=== PATIENT | male | born 1970 | race Caucasian/White ===

== ENCOUNTER 2020-01-12 00:32 | Outpatient (CLI) | payer BC, SELFPAY ==
[2020-01-12 16:46] LABS: SARS-CoV-2 RNA PCR Negative
== END 2020-01-12 00:33 | disposition home or self-care (01) ==
LOC: ANHCOVIDDT 00:32
PROVIDERS: PCP Family Medicine; Visit Provider Internal Medicine Gastroenterology
DX: Z01.818 Encounter for other preprocedural examination (principal); Z11.59 Encounter for screening for other viral diseases; R19.5 Other fecal abnormalities
CPT/HCPCS: 87635; C9803; U0003

== ENCOUNTER 2020-01-15 00:49 | Day surgery (SDC) | payer BC, SELFPAY ==
[2020-01-07 14:03] VITALS: BMI 34.2
[2020-01-15 08:30] VITALS: BMI 34.4
[2020-01-15 08:31] VITALS: BP 139/89; PULSE 57; RESP 15; TEMP 36.7; O2SAT 100
[2020-01-15] MEDS: LACTATED RINGERS 1,000 ML 150 ML IV CONT (08:41)
--- NOTE | 2020-01-15 08:59 | WPDANESEPPF ---
Anes - Initial Pre Proc Eval Procedure: Operation Date: 01/15/20 09:45 Proposed Procedures p Screening Colonoscopy - Armani English MD Date/Time: 01/15/20 08:59 Surgeon: Armani English MD Pre Op Diagnosis: positive cologuard Patient Data Age: 49 Gender: M Height: 5 ft 8 in Weight: 102.9 kg Last Vital Signs Temp 36.7 C 01/15/20 08:31 Pulse 57 L 01/15/20 08:31 Resp 15 01/15/20 08:31 BP 139/89 01/15/20 08:31 Pulse Ox 100 01/15/20 08:31 Allergies Allergy/AdvReac Type Severity Reaction Status Date / Time acetaminophen Allergy Unknown Unknown Verified 01/15/20 08:33 [From Darvocet-N] propoxyphene Allergy Unknown Unknown Verified 01/15/20 08:33 [From Darvocet-N] simvastatin [From Zocor] Allergy Unknown muscle Verified 01/15/20 08:33 aches codeine AdvReac Unknown does not Verified 01/15/20 08:33 tolerate Home Medications Medication Instructions Recorded Confirmed Type metoprolol tartrate 100 mg tablet 100 mg PO Q12H #180 tablet 09/07/19 01/15/20 Rx omeprazole 20 mg capsule,delayed 20 mg PO DAILY 09/12/19 01/15/20 History release quinapril 40 mg tablet 40 mg PO DAILY #90 tablet 11/02/19 01/15/20 Rx multivitamin 1 cap PO DAILY 01/07/20 01/15/20 History omega 5-zve-dxj-fish oil [Fish Oil] 1 cap PO DAILY 01/07/20 01/15/20 History testosterone enanthate 100 mg SUBCUT WEEKLY 01/07/20 01/15/20 History Patient hx anesthesia problems: none Family hx anesthesia problems: none PMFSH Past Medical History Medical History GERD (gastroesophageal reflux disease) HLD (hyperlipidemia) Hypertension Nephrolithiasis Pilonidal cyst Positive colorectal cancer screening using Cologuard test Rupture of right distal biceps tendon Apr 18, 2019 repair/reattachment Surgical History Surgical History H/O: vasectomy Family History Family History Other Family history of malignant melanoma Hypertension Social History Social History (Updated 01/15/20 @ 09:01 by Riaz Mora MD) Smoking status: Former smoker Second hand tobacco smoke exposure: No Alcohol intake: current Anes - Eval Final PreProcedure Day of Procedure 01/15/20 08:59 Patient weight: obese Heart: regular rate and rhythm Lungs: clear to auscultation Airway: Mallampati scale class II Neurological: alert and oriented Last oral intake: >/= 8 hours ASA classification: II Emergent: no Anesthesia type and monitoring: general Informed Consent: The patient's anesthetic plan and its attendant risks and benefits were discussed with the patient/family/POA. Questions were solicited and answers provided to the satisfaction of the patient/family/POA.
--- NOTE | 2020-01-15 10:28 | WPDHPUPDATE1 ---
History and Physical Update Update Date/Time: 01/15/20 10:28 History and Physical has been reviewed, including an updated exam of the patient. There are NO changes in the patient's condition. Risks, benefits, and alternatives have been discussed and questions answered. Patient agrees to proceed with procedure.
[2020-01-15 10:34] VITALS: BP 105/69; PULSE 56; RESP 20; O2SAT 97
[2020-01-15 10:44] VITALS: BP 104/69; PULSE 56; RESP 20; O2SAT 98
[2020-01-15 10:54] VITALS: BP 115/80; PULSE 58; RESP 20; O2SAT 100
== END 2020-01-15 11:15 | disposition home or self-care (01) ==
PROVIDERS: PCP Family Medicine; Visit Provider Internal Medicine Gastroenterology
PROC: 0DJD8ZZ Inspection of Lower Intestinal Tract, Via Natural or Artificial Opening Endoscopic (ICD-10-PCS; CPT 45378; principal; 2020-01-15 09:45)
DX: R19.5 Other fecal abnormalities (principal); D12.5 Benign neoplasm of sigmoid colon; K63.5 Polyp of colon; K57.30 Diverticulosis of large intestine without perforation or abscess without bleeding; K64.8 Other hemorrhoids; I10 Essential (primary) hypertension; E78.5 Hyperlipidemia, unspecified; K21.9 Gastro-esophageal reflux disease without esophagitis; Z87.891 Personal history of nicotine dependence; E66.9 Obesity, unspecified; Z68.34 Body mass index [BMI] 34.0-34.9, adult
CPT/HCPCS: 45380; 88305; J2001; J2704; J7120

== ENCOUNTER → 2022-12-22 11:40 | Outpatient (CLI) | payer OTHER, SELFPAY ==
--- NOTE | ~2022-12-22 | XR_ITS ---
EXAM: XR cervical spine 4-5V DATE: 12/22/2022 13:43 HISTORY: M54.12 - Radiculopathy, cervical region . COMPARISON: None available. FINDINGS: Craniocervical association and atlantoaxial joint are aligned. No prevertebral soft tissue swelling. 3 mm retrolisthesis at C5-6. Vertebral body heights are maintained. Mild disc space narrow ing at C5-6. Mild facet sclerosis in the lower cervical spine. IMPRESSION: Grade 1 retrolisthesis and mild degenerative disc disease at C5-6. Lower cervical facet a rthropathy. Reviewed, dictated and finalized at location K. IMPRESSION: Grade 1 retrolisthesis and mild degenerative disc disease at C5-6. Lower cervical facet arthropathy.
== END ==
PROVIDERS: PCP Family Medicine; Visit Provider Physician Assistant Medical
DX: M54.12 Radiculopathy, cervical region (principal); M50.322 Other cervical disc degeneration at C5-C6 level
CPT/HCPCS: 72050

== ENCOUNTER 2024-11-16 06:13 | Inpatient (IN) | payer OTHER, SELFPAY ==
[2024-11-16] VITALS (13 sets, daily range): BP systolic 109–156; BP diastolic 70–108; PULSE 76–88; RESP 16–20; TEMP 36.3–36.9; O2SAT 93–99
--- NOTE | ~2024-11-16 | CT_ITS ---
EXAMINATION: CT abdomen pelvis w con DATE: 11/16/2024 07:37 INDICATION: Right lower quadrant abdominal pain. TECHNIQUE: Computed tomography (CT) of the abdomen and pelvis was performed with 100 mL Omnipaque 350 intravenous contrast. Automated exposure control and iterative reconstruction technique were employe d. The dose-length product was 884.71 mGy-cm. COMPARISON: CT abdomen and pelvis 04/19/2014 FINDINGS: The visualized portions of lung bases demonstrate mild atelectasis. No pleural effusion. Th e heart size is normal. No pericardial effusion. There are cysts in the liver measuring up to 4 mm. T here is a gallstone in the gallbladder, which is normal in size. The pancreas, spleen, and adrenal gl ands are normal. There are cysts in the kidneys measuring up to 3.2 cm on the right. There are 4 ston es in right kidney measuring up to 5 mm. There are at least 8 stones in left kidney measuring up to 5 mm. There are bilateral inguinal hernias containing fat. There is diverticulosis of the colon withou t evidence of diverticulitis. There are multiple appendicoliths in the appendix, which is fluid-fille d and dilated to 11 mm with surrounding fat stranding, consistent with appendicitis. There are no pat hologically enlarged lymph nodes. There is no free intraperitoneal fluid. There is severe lower lumba r spondylosis. There is mild chronic anterior wedging of multiple vertebral bodies. IMPRESSION: 1. Acute appendicitis. 2. Bilateral inguinal hernias containing fat. Reviewed, dictated and finalized at location A.
--- OUTSIDE RECORDS SUMMARY | 2024-11-16 06:16 | XMS_ITS | Continuity of Care Document ---
Author Organization [facility] Address [address] [place] [address] Phone Care Team Providers Care Deli Cutter Slicer Name Role Phone Jossy PT, MPT, Deidre Unavailable Unavaila ble Procedures Procedure Date PT Re-evaluation Therapeutic Activities Neuromuscular Re-Ed Therapeutic Exercise Manual Therapy Therapeutic Activities Neuromuscular Re-Ed Therapeutic Exercise Progress Note Therapeutic Activities Neuromuscular Re-Ed Therapeutic Exercise Therapeutic Activities Neuromuscular Re-Ed Therapeutic Exercise Therapeutic Activities Neuromuscular Re-Ed Therapeutic Exercise Manual Therapy PT Evaluation Moderate Complexity Therapeutic Activities Therapeutic Exercise Manual Therapy Advance Directives Directive Yes / No Effective Date File Name No Information Encounters Encounter Description Practice Location Reason(s) For Visit Diagnoses Date Provider Providers Copied on Encounter [facility], [address], [place], [place], [id number], [place] tel:[phone] [facility] No Information 9 Jossy Jiang. . Referring Provider: Benji Dutton, [address], [place], [address]. tel:[phone] [facility], [address], [place], [place], [id number], tel:[phone] [facility] No Information 9 Jossy Deidre. . Referring Provider: Benji Dutton, [address], [place], [address]. tel:[phone] [address], [place], [place], [id number], [place] tel:[phone] [facility] No Information 3-201 9 Jacinda Michael. . Referring Provider: Benji Dutton, [address], [place], [address]. tel:[phone] [address], [place], [place], [id number], [place] tel:[phone] [facility] No Information 0 6- 9 Jacinda Michael. . Referring Provider: Benji Dutton, [address], [place], [address]. tel:[phone] [facility] [address] [place], [place] [address], [place], [place], [address], [place] tel:[phone] [facility] No Information 0 9 Jossy Deidre. . Referring Provider: Benji Dutton, [address], [place], [address]. tel:[phone] [address], [place], [place], [address], [place] tel:[phone] [facility] No Information Nov0 - 9 Jossy Deidre. . Referring Provider: Benji Dutton, [address], [place], [address]. tel:[phone] Family History Family Member Type Diagnosis Age At Onset No Information Payers Payer name Insurance type Covered libertarian ID Authoriza tion(s) [employer] PAMELA [id number] Social History Type Description Quantity Date Captured Comments Alcohol Use Details Unknown Caffeine Use Details Unknown Tobacco Use Status No Information Smoking Status No Information Non-Smoking Tobacco Use Details : No Details Available : No Details Available Sex Male Chief Complaint And Reason For Visit No Information Reason For Referral Reason For Referral No Information Plan Of Treatment Date Type Action Status Referral Ordered: PCP timeframe: 1 week. (related to Overweight) ordered Referral Ordered: PCP timeframe: 1 week. (related to Overweight) ordered History Of Present Illness Encounter Date Complaint History Of Prese nt Illness No Information Functional Status Date Functional Assessmen t Pain Score 0/10 Instructions Date Instruction Additional Infor mation No Information Assessments Type Assessment Date No Information Patient Care Teams Name Effective Dates (start - stop) Status Members No Information
[2024-11-16 06:38] LABS: Basophils Percent Auto 0.3 % (0.2-1.2); Eosinophils Percent Auto 0.2 % (0-4.4); Hemoglobin 17.4 g/dL (14.0-18.0); Immature Granulocyte Absolute 0.04 K/mm3 (0.00-0.031); Immature Granulocyte Percent A 0.3 % (0-0.5); Lymphocytes Absolute Auto 1.05 K/mm3 (0.9-3.2); Lymphocytes Percent Auto 8.5 % (18.3-44.2); Mean Corpuscular HGB Conc 32.8 g/dl (32-36); Mean Corpuscular Hemoglobin 29.9 pg (26-34); Mean Corpuscular Volume 91.2 fl (80-100); Monocytes Absolute Auto 0.6 K/mm3 (0.1-0.6); Monocytes Percent Auto 4.5 % (2.6-8.5); Neutrophils Absolute Auto 10.6 K/mm3 (1.3-6.7); Neutrophils Percent Auto 86.2 % (45.5-73.1); Platelet Count Result 232 k/mm3 (150-375); Red Blood Count 5.81 M/mm3 (4.6-6.20); Red Cell Distribution Width 12.5 % (11.5-14.5); White Blood Count 12.3 K/mm3 (4.5-10.0)
[2024-11-16 06:52] LABS: Alanine Aminotransferase 35 U/L (6-50); Albumin Level 4.8 g/dL (3.5-5.1); Alkaline Phosphatase 52 U/L (38-126); Anion Gap 11 mmol/L (4-12); Aspartate Amino Transferase 33 U/L (17-59); Bilirubin,Total 0.9 mg/dL (0.2-1.3); Blood Urea Nitrogen 17 mg/dL (9-20); Calcium 9.6 mg/dL (8.4-10.2); Carbon Dioxide 25 mmol/L (22-30); Chloride 102 mmol/L (98-107); Estimated CRCL calculation 89 ml/min; Estimated Glomerular Filt Rate > 60; Glucose 111 mg/dL (65-110); Lipase 180 U/L (23-300); Sodium 138 mmol/L (137-145)
[2024-11-16 07:07] LABS: Add Urine Microscopic? YES; Appearance Urine Clear (Clear); Bacteria Urine None Seen /hpf; Bilirubin Urine Negative (Negative); Blood Urine Negative (Negative); Color Urine Yellow (Yellow); Glucose Urine UA Negative (Negative); Ketones Urine 1+ mg/dL (Negative); Leukocyte Esterase Ur Negative LEU/UL (Negative); Nitrate Urine Negative (Negative); Non Pathogenic Casts 0-2; Protein Urine Trace mg/dL (Negative); RBC Urine 0-2 /hpf (0-2); Specific Grav Ur 1.022 (1.001-1.035); Squamous Epithelial Cell Urine None Seen /hpf (Few); Urobilinogen Urine 0.2 mg/dL (<2.0); WBC Urine 0-5 /hpf (0-3)
[2024-11-16] MEDS: SODIUM CHLORIDE 0.9% IV 1,000 ML 999 ML IV CONT (07:38)
[2024-11-16] MEDS: ONDANSETRON INJ 4 MG/2 ML VIAL IV PUSH (07:38)
[2024-11-16] MEDS: MORPHINE SULFATE (*CRX) 4 MG/ML INJ IV PUSH (07:39)
--- NOTE | 2024-11-16 07:51 | ED.ABDPAIN ---
HPI - Abdominal Pain General Chief Complaint: Abdominal Pain Stated Complaint: abd pain Time Seen by Provider: 11/16/24 06:59 Source: patient and family Mode of arrival: ambulatory Limitations: no limitations History of Present Illness HPI narrative: 54-year-old with a history of hypertension, kidney stones presents to the ER with a complaint of right lower quadrant abdominal pain which started about 1.30 am this morning. Complains of mild nausea and vomiting. Denies any fever or chills. Related Data Home Medications ?Medication ?Instructions ?Recorded ?Confirmed ?Last Taken ?Type multivitamin 1 cap PO DAILY 01/07/20 08/11/23 Unknown History testosterone cypionate 200 mg/mL 200 mg IM WEEKLY 09/02/21 08/11/23 Unknown History intramuscular oil omega 0-rwv-mkr-fish oil 1,000 mg 1 cap PO DAILY 01/13/22 08/11/23 Unknown History (120 mg-180 mg) capsule (Fish Oil) Allergies Allergy/AdvReac Type Severity Reaction Status Date / Time acetaminophen (From Allergy Unknown Unknown Verified 11/16/24 06:31 Darvocet-N) propoxyphene (From Allergy Unknown Unknown Verified 11/16/24 06:31 Darvocet-N) simvastatin (From Zocor) Allergy Unknown muscle Verified 11/16/24 06:31 aches codeine AdvReac Unknown does not Verified 11/16/24 06:31 tolerate Review of Systems Review of Systems: All systems reviewed & are unremarkable except as noted in HPI and below Constitutional: Constitutional: Reports no additional constitutional complaints Eyes: Eyes: Reports no additional eye complaints ENT: Reports system reviewed and no additional complaints, except as documented Cardiovascular: Cardiovascular: Reports no additional cardiovascular complaints Respiratory: Respiratory: Reports no additional respiratory complaints Gastrointestinal: Gastrointestinal: Reports as per HPI Genitourinary: Genitourinary: Reports no additional male genitourinary complaints Musculoskeletal: Musculoskeletal: Reports no additional musculoskeletal complaints Integumentary/Breasts: Skin/Breast: Reports system reviewed and no additional complaints, except as docu PMFSH Past Medical History Medical History BMI 36.0-36.9,adult Positive colorectal cancer screening using Cologuard test Rupture of right distal biceps tendon Apr 18, 2019 repair/reattachment Pilonidal cyst Nephrolithiasis GERD (gastroesophageal reflux disease) HLD (hyperlipidemia) Hypertension Surgical History Surgical History H/O: vasectomy Family History Family History Other Family history of malignant melanoma Hypertension Social History Social History Smoking status: Never smoker Second hand tobacco smoke exposure: No Alcohol intake: current Drinks per week: 2 Alcohol use details: beers Substance use: never Substance use type: does not use Lack of Transportation: No Lack of Food: Never True Current Housing: I Have Housing Concerned About Future Housing: No Difficulty Paying Gas/Electric Bills: No Difficulty Paying for Meds: No Currently Unemployed: No Difficulty w/ Childcare or Family Care: No Living arrangements: with family Gender identity (if verbalized by the patient): Male Sexual Orientation (if Verbalized by the Patient): Straight or Heterosexual Spiritual care concerns: No Agree to blood products: Yes Exam Narrative: GENERAL: Well-appearing, well-nourished, and in no acute distress. HEAD: Normocephalic, atraumatic. EYES: PERRLA and EOMI. ENT: Nares clear, Mucous membranes moist. NECK: Supple. CHEST: Clear to auscultation. No respiratory distress. HEART: Regular rate and rhythm. No murmur heard. Normal peripheral pulses. ABDOMEN: Soft, marked tenderness in the right lower quad with mild guarding, nondistended . EXTREMITIES: Normal range of motion. No edema. SKIN: Warm, dry, no rash. NEURO: No focal deficits. Alert and oriented x3. PSYCH: Normal mood and affect. Course Course Emergency Course: Pain is much improved with IV morphine. Informed him and his about the lab work, CT findings. Waiting for surgical consult Discussed with Dr. Huggins recommended IV Zosyn, admission . Vital Signs Vital signs: Vital Signs Temperature 36.4 C 11/16/24 06:24 Pulse Rate 85 11/16/24 06:24 Respiratory Rate 16 11/16/24 06:24 Blood Pressure 156/108 H 11/16/24 06:24 Pulse Oximetry 99 11/16/24 06:24 Oxygen Delivery Room Air 11/16/24 06:24 Temperature 36.4 C 11/16/24 06:24 Pulse Rate 83 11/16/24 08:00 Respiratory Rate 16 11/16/24 08:00 Blood Pressure 150/96 H 11/16/24 08:00 Pulse Oximetry 98 11/16/24 08:00 Oxygen Delivery Room Air 11/16/24 06:24 MDM - Abdominal Pain Differential Diagnosis Differential diagnosis: Likely acute appendicitis, calculus of kidney and constipation Lab Data Attestation: I reviewed the patient's lab results. 11/16/24 06:29 11/16/24 06:29 Labs: Lab Results 11/16/24 Range/Units 06:29 WBC 12.3 H (4.5-10.0) K/mm3 RBC 5.81 (4.6-6.20) M/mm3 Hgb 17.4 (14.0-18.0) g/dL Hct 53.0 H (42.0-52.0) % MCV 91.2 (80-100) fl MCH 29.9 (26-34) pg MCHC 32.8 (32-36) g/dl RDW 12.5 (11.5-14.5) % Plt Count 232 (150-375) k/mm3 MPV 10.0 (7.4-10.4) fl Immature Gran % (Auto) 0.3 (0-0.5) % Neut % (Auto) 86.2 H (45.5-73.1) % Lymph % (Auto) 8.5 L (18.3-44.2) % [place] % (Auto) 4.5 (2.6-8.5) % Eos % (Auto) 0.2 (0-4.4) % Baso % (Auto) 0.3 (0.2-1.2) % Lymph # (Auto) 1.05 (0.9-3.2) K/mm3 [place] # (Auto) 0.6 (0.1-0.6) K/mm3 Eos # (Auto) 0.0 (0-0.3) K/mm3 Baso # (Auto) 0.0 (0.0-0.1) K/mm3 Abs Immat Gran (auto) 0.04 H (0.00-0.031) K/mm3 Absolute Neuts (auto) 10.6 H (1.3-6.7) K/mm3 Absolute Nucleated RBC 0.000 (0.0-0.012) K/mm3 Nucleated RBC % 0.0 (0.0-0.2) % PT 12.0 (11.1-14.7) Seconds INR 0.8 Sodium 138 (137-145) mmol/L Potassium 4.0 (3.4-5.0) mmol/L Chloride 102 (98-107) mmol/L Carbon Dioxide 25 (22-30) mmol/L Anion Gap 11 (4-12) mmol/L BUN 17 (9-20) mg/dL Creatinine 0.92 (0.7-1.3) mg/dL Estim Creat Clear Calc 89 ml/min Estimated GFR > 60 (59 - ) Glucose 111 H (65-110) mg/dL Calcium 9.6 (8.4-10.2) mg/dL Total Bilirubin 0.9 (0.2-1.3) mg/dL AST 33 (17-59) U/L ALT 35 (6-50) U/L Alkaline Phosphatase 52 (38-126) U/L Total Protein 8.0 (6.3-8.2) g/dL Albumin 4.8 (3.5-5.1) g/dL Lipase 180 (23-300) U/L Urine Color Yellow (Yellow) Urine Appearance Clear (Clear) Urine pH 5.0 (5.0-9.0) Ur Specific [place] 1.022 (1.001-1.035) Urine Protein Trace (Negative) mg/dL Urine Glucose (UA) Negative (Negative) mg/dL Urine Ketones 1+ H (Negative) mg/dL Ur Blood (Man) Negative (Negative) Urine Nitrate Negative (Negative) Urine Bilirubin Negative (Negative) Urine Urobilinogen 0.2 (<2.0) mg/dL Leukocyte Esterase Rfl Negative (Negative) SAL/UL Urine RBC 0-2 (0-2) /hpf Urine WBC 0-5 (0-3) /hpf Ur Squamous Epith Cells None seen (Few) /hpf Urine Bacteria None seen /hpf Urine Casts 0-2 Imaging Data Radiologist's impression: ITS Impressions Abdomen/Pelvis CT 11/16/24 07:39 IMPRESSION: 1. Acute appendicitis. 2. Bilateral inguinal hernias containing fat. ECG Data EKG #1: ECG completion date: 11/16/24 ECG completion time: 08:49 normal rate (84), sinus rhythm, no ST changes, NL axis and no acute changes Discharge Plan Discharge Clinical Impression: Acute appendicitis Qualifiers: Acute appendicitis type: with localized peritonitis Appendicitis gangrene presence: without gangrene Appendicitis perforation presence: without perforation Appendicitis abscess presence: without abscess Qualified Code(s): K35.30 - Acute appendicitis with localized peritonitis, without perforation or gangrene Patient Disposition: Still a Patient Condition: Stable Instructions: Antibiotic Form Patient Language: Unknown Prescriptions: No Action testosterone cypionate 200 mg/mL oil 200 mg IM WEEKLY Rx Instructions: as a single dose multivitamin Capsule 1 cap PO DAILY omega 5-ymf-yll-fish oil [Fish Oil] 1,000 mg (120 mg-180 mg) capsule 1 cap PO DAILY lisinopril 40 mg tablet 40 mg PO DAILY Qty: 90 2RF Follow-up/Referrals: Irene Linton MD [Primary Care Provider] - Time of Disposition: 08:55
--- NOTE | 2024-11-16 07:52 | ECG_ITS ---
Test Date: 2024-11-16 08:49:15 Measurements Intervals [place] Rate: 84 P: 19 [place]: 173 QRS: -26 QRSD: 93 T: -8 QT: 352 QTc: 417 Interpretive Statements SINUS RHYTHM BORDERLINE LEFT AXIS DEVIATION [QRS AXIS < -20] MODERATE VOLTAGE CRITERIA FOR LVH, CONSIDER NORMAL VARIANT [MEETS CRITERIA IN ONE OF: R(aVL), S(V1), R(V5), R(V5/V6)+S(V1)] No previous ECG available for comparison Electronically Signed On 11-16-2024 10:59:59 CDT by Clara Oliver M.D.
[2024-11-16 08:12] LABS: INR 0.8
[2024-11-16] MEDS: PIPERACILLN/TAZ 3.375GM/NS50ML 3.375 GM/50 ML BAG IVPB ×3 (09:02→20:39)
[2024-11-16] MEDS: SODIUM CHLORIDE 0.9% IV 1,000 ML 125 ML IV CONT (10:14)
[2024-11-16] MEDS: MORPHINE SULFATE (*CRX) 2 MG/ML INJ IV PUSH ×3 (10:17→14:46)
--- NOTE | 2024-11-16 15:00 | PC.NURSE ---
To OR per wheelchair, IV right antecubital Report given to Kathy HYLTON.
--- NOTE | 2024-11-16 16:02 | P.PNAN_ITS ---
Anes - Initial Pre Proc Eval Procedure: Operation Date: 11/16/24 17:00 Proposed Procedures p Laparoscopic Appendectomy - He Huggins MD Date/Time: 11/16/24 16:02 Surgeon: He Huggins MD Pre Op Diagnosis: acute appendicitis Patient Data Age: 54 Gender: M Height: 1.73 m Weight: 95.4 kg Last Vital Signs Temp 36.9 C 11/16/24 15:31 Pulse 87 11/16/24 15:31 Resp 18 11/16/24 13:40 BP 127/81 11/16/24 15:31 Pulse Ox 96 11/16/24 15:31 O2 Del Method Room Air 11/16/24 06:24 Allergies Allergy/AdvReac Type Severity Reaction Status Date / Time acetaminophen (From Allergy Unknown Unknown Verified 11/16/24 06:31 Darvocet-N) propoxyphene (From Allergy Unknown Unknown Verified 11/16/24 06:31 Darvocet-N) simvastatin (From Zocor) Allergy Unknown muscle Verified 11/16/24 06:31 aches codeine AdvReac Unknown does not Verified 11/16/24 06:31 tolerate Home Medications ?Medication ?Instructions ?Recorded ?Confirmed ?Type multivitamin 1 cap PO DAILY 01/07/20 08/11/23 History testosterone cypionate 200 mg/mL 200 mg IM WEEKLY 09/02/21 08/11/23 History intramuscular oil omega 6-hxp-eag-fish oil 1,000 mg 1 cap PO DAILY 01/13/22 08/11/23 History (120 mg-180 mg) capsule (Fish Oil) lisinopril 40 mg tablet 40 mg PO DAILY #90 tabs 10/22/24 Rx Laboratory Tests 11/16/24 06:29 WBC 12.3 H K/mm3 (4.5-10.0) RBC 5.81 M/mm3 (4.6-6.20) Hgb 17.4 g/dL (14.0-18.0) Hct 53.0 H % (42.0-52.0) MCV 91.2 fl (80-100) MCH 29.9 pg (26-34) MCHC 32.8 g/dl (32-36) RDW 12.5 % (11.5-14.5) Plt Count 232 k/mm3 (150-375) MPV 10.0 fl (7.4-10.4) Immature Gran % (Auto) 0.3 % (0-0.5) Neut % (Auto) 86.2 H % (45.5-73.1) Lymph % (Auto) 8.5 L % (18.3-44.2) [place] % (Auto) 4.5 % (2.6-8.5) Eos % (Auto) 0.2 % (0-4.4) Baso % (Auto) 0.3 % (0.2-1.2) Lymph # (Auto) 1.05 K/mm3 (0.9-3.2) [place] # (Auto) 0.6 K/mm3 (0.1-0.6) Eos # (Auto) 0.0 K/mm3 (0-0.3) Baso # (Auto) 0.0 K/mm3 (0.0-0.1) Abs Immat Gran (auto) 0.04 H K/mm3 (0.00-0.031) Absolute Neuts (auto) 10.6 H K/mm3 (1.3-6.7) Absolute Nucleated RBC 0.000 K/mm3 (0.0-0.012) Nucleated RBC % 0.0 % (0.0-0.2) PT 12.0 Seconds (11.1-14.7) INR 0.8 Sodium 138 mmol/L (137-145) Potassium 4.0 mmol/L (3.4-5.0) Chloride 102 mmol/L (98-107) Carbon Dioxide 25 mmol/L (22-30) Anion Gap 11 mmol/L (4-12) BUN 17 mg/dL (9-20) Creatinine 0.92 mg/dL (0.7-1.3) Estim Creat Clear Calc 89 ml/min Estimated GFR > 60 (59 - ) Glucose 111 H mg/dL (65-110) Calcium 9.6 mg/dL (8.4-10.2) Total Bilirubin 0.9 mg/dL (0.2-1.3) AST 33 U/L (17-59) ALT 35 U/L (6-50) Alkaline Phosphatase 52 U/L (38-126) Total Protein 8.0 g/dL (6.3-8.2) Albumin 4.8 g/dL (3.5-5.1) Lipase 180 U/L (23-300) Urine Color Yellow (Yellow) Urine Appearance Clear (Clear) Urine pH 5.0 (5.0-9.0) Ur Specific [place] 1.022 (1.001-1.035) Urine Protein Trace mg/dL (Negative) Urine Glucose (UA) Negative mg/dL (Negative) Urine Ketones 1+ H mg/dL (Negative) Ur Blood (Man) Negative (Negative) Urine Nitrate Negative (Negative) Urine Bilirubin Negative (Negative) Urine Urobilinogen 0.2 mg/dL (<2.0) Leukocyte Esterase Rfl Negative SAL/UL (Negative) Urine RBC 0-2 /hpf (0-2) Urine WBC 0-5 /hpf (0-3) Ur Squamous Epith Cells None seen /hpf (Few) Urine Bacteria None seen /hpf Urine Casts 0-2 Patient hx anesthesia problems: none Family hx anesthesia problems: none Results Review: All pre-operative results and documents have been reviewed as part of the pre- operative evaluation. ON LICENSE OF [facility] Past Medical History Medical History BMI 36.0-36.9,adult Positive colorectal cancer screening using Cologuard test Rupture of right distal biceps tendon Apr 18, 2019 repair/reattachment Pilonidal cyst Nephrolithiasis GERD (gastroesophageal reflux disease) HLD (hyperlipidemia) Hypertension Surgical History Surgical History H/O: vasectomy Family History Family History Other Family history of malignant melanoma Hypertension Social History Social History Smoking status: Never smoker Second hand tobacco smoke exposure: No Alcohol intake: current Drinks per week: 2 Alcohol use details: beers Substance use: never Substance use type: does not use Lack of Transportation: No Lack of Food: Never True Current Housing: I Have Housing Concerned About Future Housing: No Difficulty Paying Gas/Electric Bills: No Difficulty Paying for Meds: No Currently Unemployed: No Difficulty w/ Childcare or Family Care: No Living arrangements: with family Gender identity (if verbalized by the patient): Male Sexual Orientation (if Verbalized by the Patient): Straight or Heterosexual Spiritual care concerns: No Agree to blood products: Yes Anes - Eval Final PreProcedure Day of Procedure 11/16/24 16:02 Patient weight: obese Heart: regular rate and rhythm Lungs: clear to auscultation Airway: Mallampati scale class II Neurological: alert and oriented Last oral intake: >/= 8 hours ASA classification: III Emergent: yes Anesthetic plan: proceed Anesthesia type and monitoring: general ETT and standard monitoring Results Review: All pre-operative results and documents have been reviewed as part of the pre- operative evaluation. Informed Consent: The patient's anesthetic plan and its attendant risks and benefits were discussed with the patient/family/POA. Questions were solicited and answers provided to the satisfaction of the patient/family/POA.
[2024-11-16] MEDS: LACTATED RINGERS 1,000 ML 30 ML IV CONT (16:22)
--- NOTE | 2024-11-16 16:30 | WPDHPUPDATE1 ---
History and Physical Update Update Date/Time: 11/16/24 16:30 History and Physical has been reviewed, including an updated exam of the patient. There are NO changes in the patient's condition. Risks, benefits, and alternatives have been discussed and questions answered. Patient agrees to proceed with procedure.
[2024-11-16] MEDS: BUPIVACAINE/EPINEPHRINE 0.5% 50 ML VIAL 30 ML INFILTRATE (16:45)
--- NOTE | 2024-11-16 17:05 | PM.IMHP ---
H&P: HPI History of Present Illness Date/Time: 11/16/24 17:05 Chief Complaint: Right lower quadrant abdominal pain Narrative: patient is a 54-year-old man who was awakened at 1:30 a.m. this morning out of a sleep with right lower quadrant pain that got progressively worse. He had nausea but no vomiting. He did not have any fever. The pain was bad enough that he came to the emergency room. He was noted to have exquisite tenderness in the right lower quadrant. [place] [address]. He had a CT scan which showed an 11 mm appendix with appendicoliths and inflammatory change consistent with acute appendicitis. He is admitted now and started on IV antibiotics with plans to proceed with laparoscopic appendectomy later today. Review of Systems Review of Systems: All systems reviewed & are unremarkable except as noted in HPI and below ( HPI) FOR[facility]LY [facility] Past Medical History Medical History BMI 36.0-36.9,adult Positive colorectal cancer screening using Cologuard test Rupture of right distal biceps tendon Apr 18, 2019 repair/reattachment Pilonidal cyst Nephrolithiasis GERD (gastroesophageal reflux disease) HLD (hyperlipidemia) Hypertension Surgical History Surgical History H/O: vasectomy Family History Family History Other Family history of malignant melanoma Hypertension Social History Social History Smoking status: Never smoker Second hand tobacco smoke exposure: No Alcohol intake: current Drinks per week: 2 Alcohol use details: beers Substance use: never Substance use type: does not use Lack of Transportation: No Lack of Food: Never True Current Housing: I Have Housing Concerned About Future Housing: No Difficulty Paying Gas/Electric Bills: No Difficulty Paying for Meds: No Currently Unemployed: No Difficulty w/ Childcare or Family Care: No Living arrangements: with family Gender identity (if verbalized by the patient): Male Sexual Orientation (if Verbalized by the Patient): Straight or Heterosexual Spiritual care concerns: No Agree to blood products: Yes Meds Home Medications and Allergies Home Medications ?Medication ?Instructions ?Recorded ?Confirmed ?Type multivitamin 1 cap PO DAILY 01/07/20 08/11/23 History testosterone cypionate 200 mg/mL 200 mg IM WEEKLY 09/02/21 08/11/23 History intramuscular oil omega 6-vfk-ybn-fish oil 1,000 mg 1 cap PO DAILY 01/13/22 08/11/23 History (120 mg-180 mg) capsule (Fish Oil) lisinopril 40 mg tablet 40 mg PO DAILY #90 tabs 10/22/24 Rx Allergies Allergy/AdvReac Type Severity Reaction Status Date / Time acetaminophen (From Allergy Unknown Unknown Verified 11/16/24 06:31 Darvocet-N) propoxyphene (From Allergy Unknown Unknown Verified 11/16/24 06:31 Darvocet-N) simvastatin (From Zocor) Allergy Unknown muscle Verified 11/16/24 06:31 aches codeine AdvReac Unknown does not Verified 11/16/24 06:31 tolerate Vital Signs Vital Signs - 24 hr 11/16/24 06:24 11/16/24 08:00 11/16/24 09:55 Temperature 36.4 C Pulse Rate 85 83 80 Respiratory Rate 16 16 16 Blood Pressure 156/108 H 150/96 H 130/84 Pulse Oximetry 99 98 98 Oxygen Delivery Room Air 11/16/24 13:40 11/16/24 15:31 Temperature 36.8 C 36.9 C Pulse Rate 85 87 Respiratory Rate 18 Blood Pressure 137/86 127/81 Pulse Oximetry 93 96 Oxygen Delivery Exam Const: General: comfortable, no acute distress, alert, awake and overweight Orientation/consciousness: patient oriented x3 and No confusion HENMT: Head: normocephalic and atraumatic Mouth: Yes Normal oral and palatal mucosa present Eyes: Conjunctivae: conjunctivae normal Pupils: Equal, round and reactive pupils present EOM: EOMs intact bilaterally Neck: Neck: normal visual inspection, no lymphadenopathy and nontender Resp: Effort & Inspection: normal respiratory effort Auscultation: clear to auscultation bilaterally Cardio: Rate: regular rate Rhythm: regular rhythm Heart sounds: no gallops, no murmurs and no rubs GI: Inspection: non-distended, obesity ( protuberant abdomen), no scars and visible herniation ( umbilical) GI Palp: Yes Soft to palpation, Yes Tenderness to palpation present (GI) ( very tender right lower quadrant with guarding), Yes Guarding due to palpation present (GI), No Hepatomegaly present, No Splenomegaly present, Yes Hernia present umbilical < 3 cm ( reducible) and No Palpable mass present Skin: Lesions: no lesions Rashes: no rashes Neuro: General: no focal motor deficits and CN's II-XI intact bilaterally Cranial nerves: Yes Equal, round and reactive pupils present, Yes Bilaterally intact EOM present, Yes facial symmetry and Yes Midline tongue present Speech: normal speech Motor exam (neuro): 5/5 motor strength present throughout and Motor abnormalities not present Extrem: General: no clubbing, cyanosis or edema and edema Psych: Affect: normal affect Thought process: Normal thought process present Insight: Good insight present (Psych) H&P: Results Labs Labs: Short CBC 11/16/24 Range/Units 06:29 WBC 12.3 H (4.5-10.0) K/mm3 Hgb 17.4 (14.0-18.0) g/dL Hct 53.0 H (42.0-52.0) % Plt Count 232 (150-375) k/mm3 BMP 11/16/24 06:29 Sodium 138 Potassium 4.0 Chloride 102 Carbon Dioxide 25 BUN 17 Creatinine 0.92 Glucose 111 H Calcium 9.6 Liver Function 11/16/24 Range/Units 06:29 Total Bilirubin 0.9 (0.2-1.3) mg/dL AST 33 (17-59) U/L ALT 35 (6-50) U/L Alkaline Phosphatase 52 (38-126) U/L Albumin 4.8 (3.5-5.1) g/dL Urine 11/16/24 Range/Units 06:29 Urine Color Yellow (Yellow) Urine Appearance Clear (Clear) Urine pH 5.0 (5.0-9.0) Ur Specific [place] 1.022 (1.001-1.035) Urine Protein Trace (Negative) mg/dL Urine Glucose (UA) Negative (Negative) mg/dL Assessment and Plan Assessment and plan (1) Acute appendicitis: Qualifiers: Acute appendicitis type: with localized peritonitis Appendicitis abscess presence: without abscess Appendicitis gangrene presence: without gangrene Appendicitis perforation presence: without perforation Qualified Code(s): K35.30 - Acute appendicitis with localized peritonitis, without perforation or gangrene Code(s): K35.80 - Unspecified acute appendicitis Status: Acute Assessment and Plan: plan to proceed with laparoscopic appendectomy under general anesthesia today. He has been started on IV Zosyn antibiotics. I explained the procedure, risks, benefits, alternatives as well as the usual recovery. An time off work. All questions were answered. His was present for the examination and discussion. He agrees to go ahead. (2) SPENCER on CPAP: Code(s): G47.33 - Obstructive sleep apnea (adult) (pediatric) Status: Chronic (3) Hypertension: Qualifiers: Hypertension type: unspecified Qualified Code(s): I10 - Essential (primary) hypertension Code(s): I10 - Essential (primary) hypertension Status: Chronic
--- NOTE | 2024-11-16 17:11 | P.OP_ITS ---
Procedure Note - Detailed Date of Procedure 11/16/24 Pre-op Diagnosis acute appendicitis Post-op Diagnosis Same Procedure Performed Laparoscopic appendectomy Surgeon He Huggins MD Net Washer Mona ROCHA, Jazmin Walden PHYSICIAN PRACTICE COORDINATOR Anesthesia General and Local Indications patient had right lower quadrant abdominal pain started very early this morning. He had leukocytosis and right lower quadrant tenderness with peritoneal signs. CT scan showed acute appendicitis with appendicoliths. He is taken to surgery now for laparoscopic appendectomy. Findings Acute appendicitis with some fibrinous exudate but no gangrenous change or perforation noted. No abscess seen. Description of Procedure patient was taken to surgery and induced into general anesthesia. The abdomen is prepped and draped. Trocars were placed in the usual fashion using local anesthetic and a 5 mm camera. Patient was placed in Trendelenburg with the right-side elevated. The appendix was found rather easily. There was a lot of fibrin is exudate and edematous, inflammatory change. I was able to break up the inflammatory adhesions and then grasped the mesentery of the appendix. Using cautery, I was able to score the peritoneum around the mesoappendix and then dissected in the mesoappendix. Appendiceal artery and other vessels were thoroughly cauterized and divided. Eventually I skeletonized the base of the appendix. Vicryl endoloop was used to ligate the appendix at its base. I then amputated the appendix just above the ligature and cauterized the mucosa of the appendiceal stump. The appendix was placed immediately in an Endo-Catch bag. It was retrieved through the 10 11 left lower quadrant trocar site. We replaced the left lower quadrant trocar and reviewed the areas of dissection and the appendiceal stump. This area was suctioned, irrigated and suctioned again. This process was repeated at least 3 or 4 times. All looked quite good with no evidence of bleeding or other problems. We then evacuated CO2 and removed the trocar sleeves. Skin wounds were closed with subcuticular 4-0 Monocryl skin suture. The wounds were dressed with Exofin surgical adhesive. Patient was awakened and taken to recovery in good condition. Sponge and needle counts were correct x2. Estimated Blood Loss -5 Drains No Packing No Pathology Yes ( appendix) Complications None Condition Stable Disposition PACU [facility] Billing Surgery - Charge Forward: Surgery Billing ( laparoscopic appendectomy)
--- NOTE | 2024-11-16 19:10 | PCRCNOTE ---
Per RN, patient didn't bring in home BIPAP/ CPAP unit. Patient Does not request one from Respiratory at this time.
[2024-11-16] MEDS: FAMOTIDINE 20 MG/2 ML VIAL IV PUSH (20:38)
[2024-11-16] MEDS: oxyCODONE/ACETAMINOPHEN (*CRX) 5-325 MG TABLET 1 TABLET PO (20:46)
[2024-11-16] MEDS: LACTATED RINGERS 1,000 ML 100 ML IV CONT (21:25)
[2024-11-17 00:04] VITALS: BP 116/76; PULSE 76; RESP 16; TEMP 36.1; O2SAT 94
[2024-11-17] MEDS: PIPERACILLN/TAZ 3.375GM/NS50ML 3.375 GM/50 ML BAG IVPB ×2 (03:30→09:48)
[2024-11-17] MEDS: oxyCODONE/ACETAMINOPHEN (*CRX) 5-325 MG TABLET 1 TABLET PO (03:48)
[2024-11-17 04:15] VITALS: BP 130/96; PULSE 76; RESP 16; TEMP 36.5; O2SAT 97
[2024-11-17 06:38] LABS: Hematocrit 49.9 % (42.0-52.0); Hemoglobin 15.9 g/dL (14.0-18.0); Mean Corpuscular HGB Conc 31.9 g/dl (32-36); Mean Corpuscular Hemoglobin 29.8 pg (26-34); Mean Corpuscular Volume 93.6 fl (80-100); Mean Platelet Volume 10.3 fl (7.4-10.4); Platelet Count Result 191 k/mm3 (150-375); Red Blood Count 5.33 M/mm3 (4.6-6.20); Red Cell Distribution Width 12.7 % (11.5-14.5); White Blood Count 9.3 K/mm3 (4.5-10.0)
[2024-11-17 06:52] LABS: Anion Gap 9 mmol/L (4-12); Blood Urea Nitrogen 10 mg/dL (9-20); Calcium 9.1 mg/dL (8.4-10.2); Carbon Dioxide 29 mmol/L (22-30); Chloride 102 mmol/L (98-107); Estimated CRCL calculation 85 ml/min; Estimated Glomerular Filt Rate > 60; Glucose 102 mg/dL (65-110); Potassium 3.7 mmol/L (3.4-5.0); Sodium 140 mmol/L (137-145)
[2024-11-17 08:02] VITALS: BP 159/99; PULSE 83; RESP 18; TEMP 36.4; O2SAT 96
[2024-11-17] MEDS: FAMOTIDINE 20 MG/2 ML VIAL IV PUSH (08:40)
[2024-11-17] MEDS: ENOXAPARIN 40 MG/0.4 ML SYRINGE SUB-Q (08:40)
[2024-11-17] MEDS: IBUPROFEN IV 800 MG/200 ML 800 MG/200 ML BAG 400 MG IVPB (08:40)
[2024-11-17 12:15] VITALS: BP 129/87; PULSE 70; RESP 18; TEMP 36.3; O2SAT 97
--- NOTE | 2024-11-17 12:19 | P.DS_ITS ---
DS: Admitting Diagnosis Discharge Date 11/17/2024 Admitting Diagnosis Acute appendicitis DS: Discharge Diagnosis Discharge Diagnosis (1) Acute appendicitis: Qualifiers: Acute appendicitis type: with localized peritonitis Appendicitis abscess presence: without abscess Appendicitis gangrene presence: without gangrene Appendicitis perforation presence: without perforation Qualified Code(s): K35.30 - Acute appendicitis with localized peritonitis, without perforation or gangrene Code(s): K35.80 - Unspecified acute appendicitis Status: Acute DS: Summary Hospital Course Hospital Course: Patient presented to the emergency room yesterday having awakened at 1:30 a.m. yesterday morning with right lower quadrant abdominal pain that worsened over time. He came to the emergency room and was tender in the right lower [place] [id number] scan showed evidence of acute appendicitis with appendicoliths. He was taken to surgery on the same day by Dr. Huggins and underwent laparoscopic appendectomy. Patient was observed overnight and continued on IV Zosyn antibiotics. He was doing very well on postop day 1. He was ambulating independently and comfortable on oral analgesics. He was hungry and tolerating oral intake well. He is discharged in good condition on postop day 1. 11/17/2024. Status at Discharge Functional status at discharge: independent ambulation Overall status at discharge: patient is progressing back to baseline Time Spent with Patient Time attestation: Total time spent providing and/or coordinating discharge services: Time spent: Less than 30 minutes DS: Data Data Completed and Pending Pending studies at discharge: Pending at discharge 11/16/24 16:47 Surgical [PTH] Routine Labs on day of discharge: Labs from last 24 hours 11/17/24 06:04 WBC 9.3 RBC 5.33 Hgb 15.9 Hct 49.9 MCV 93.6 MCH 29.8 MCHC 31.9 L RDW 12.7 Plt Count 191 MPV 10.3 Sodium 140 Potassium 3.7 Chloride 102 Carbon Dioxide 29 Anion Gap 9 BUN 10 D Creatinine 0.97 Estim Creat Clear Calc 85 Estimated GFR > 60 Glucose 102 Calcium 9.1 Discharge Plan Discharge Attending physician on discharge: He Huggins Discharging Clinician: He Huggins Anticipated Discharge Date/Time: 11/17/24 12:22 Patient Disposition: Home, Self-Care Activity: may shower, no straining and as tolerated Diet: regular Wound Care Instructions: incision open to air Discharge Instructions: * Ambulate 3-4 x per day and as tolerated. Okay to ride a stationary bike with moderation. * No lifting over 15-20lbs. * May bathe or shower. Okay to wash over surgical incisions with soap and water. * Stairs are OK. * May drive a car in 3 days. 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 * See Dr. Huggins in 2 weeks. Call his office to make appointment. Patient Instructions: Antibiotic Form Patient Language: Unknown Stand Alone Forms: General Discharge Information, Work/School Release IP Follow-up/Referrals: He Huggins MD [Physician] - 2 Weeks Discharge Medications: New oxycodone-acetaminophen [Percocet] 5-325 mg tablet 0.5 - 1 tablet PO Q4H PRN (Reason: pain) Qty: 10 0RF ketorolac 10 mg tablet 10 mg PO Q6H 4 Days Qty: 16 0RF Continued testosterone cypionate 200 mg/mL oil 200 mg IM WEEKLY Rx Instructions: as a single dose multivitamin Capsule 1 cap PO DAILY omega 9-flf-eia-fish oil [Fish Oil] 1,000 mg (120 mg-180 mg) capsule 1 cap PO DAILY lisinopril 40 mg tablet 40 mg PO DAILY Qty: 90 2RF Date of admission: 11/16/24 08:56 Primary Care Provider: Irene Linton Admitting Provider: He Huggins Attending physician on admission: He Huggins Condition: Improved
--- NOTE | 2024-11-17 16:36 | WPDANESPN ---
Anes - Prog Note Post-Op Date/Time: 11/17/24 16:36 Cardiovascular status: normal Respiratory status: normal Airway patency: baseline Mental status: baseline Post-Op hydration status: normal Vital Signs: Last Vital Signs Temp 36.3 C L 11/17/24 12:15 Pulse 70 11/17/24 12:15 Resp 18 11/17/24 12:15 BP 129/87 11/17/24 12:15 Pulse Ox 97 11/17/24 12:15 O2 Del Method Room Air 11/17/24 09:02 O2 Flow Rate 8 11/16/24 17:45 Pain Score (VAS): 2 I/O: Intake & Output 11/17/24 11/17/24 11/17/24 07:59 15:59 23:59 Intake Total 450 730 Balance 450 730 Laboratory Tests 11/17/24 06:04 11/17/24 06:04 11/17/24 06:04 WBC 9.3 RBC 5.33 Hgb 15.9 Hct 49.9 MCV 93.6 MCH 29.8 MCHC 31.9 L RDW 12.7 Plt Count 191 MPV 10.3 Sodium 140 Potassium 3.7 Chloride 102 Carbon Dioxide 29 Anion Gap 9 BUN 10 D Creatinine 0.97 Estim Creat Clear Calc 85 Estimated GFR > 60 Glucose 102 Calcium 9.1 Post-procedural complaints: none Patient Feedback: Patient satisfied with anesthetic care.
== END 2024-11-17 14:07 | disposition home or self-care (01) | DRG 399 ==
LOC: ANHED 08:55 → ANH3MEDSUR 09:17
PROVIDERS: Student in an Organized Health Care Education/Training Program; Admitting Provider Surgery; Emergency Provider Family Medicine; PCP Family Medicine; Visit Provider Surgery
PROC: 0DTJ4ZZ Resection of Appendix, Percutaneous Endoscopic Approach (ICD-10-PCS; CPT 44970; principal; 2024-11-16 17:00)
DX: K35.80 Unspecified acute appendicitis (principal); I10 Essential (primary) hypertension; E78.5 Hyperlipidemia, unspecified; K21.9 Gastro-esophageal reflux disease without esophagitis; E66.9 Obesity, unspecified; Z68.32 Body mass index [BMI] 32.0-32.9, adult
CPT/HCPCS: 36415; 74177; 80048; 80053; 81001; 83690; 85025; 85027; 85610; 88304; 93005; 96361; 96374; 96375; 99285; A9270; J1650; J1741; J2250; J2270; J2405; J2543; J3010; J7030; J7120; Q9967